=== PATIENT | male | born 1995 | race Caucasian/White ===

== ENCOUNTER → 2018-07-07 | Outpatient (CLI) | payer OTHER ==
--- NOTE | 2018-07-09 20:43 | SLE ---
[facility] [place] [address] POLYSOMNOGRAPHY STUDY Name: ANTHONY TUTTLE Cami Room #: REG [facility]#: [id number] Admission: 07/07/18 ������������������ Attend Phys: Richard Harrington MD Discharge: ������������������ Date of : [birth year] Report #: [id number] THIS REPORT FOR: //name// CC: Richard Pradhan MD DATE OF SERVICE: 07/07/2018 ATTENDING PHYSICIAN: Dr. Eric Pradhan. The patient is a 23-year-old who weighs 355 pounds with a BMI of 50.9. The patient's [place] score was 15. The patient underwent split night study performed at [facility]. During the night study, the patient spent 468 minutes in bed and slept for 391 minutes with a sleep efficiency of 83%. Sleep latency was 1.9 minutes with a REM latency of 99.9 minutes. Overall sleep architecture showed increased stage 1 sleep, normal stage 2 sleep, absent N3 sleep and normal REM sleep. During the initial diagnostic portion of the study, the patient spent 215 minutes in bed and slept for 154 minutes. During that time, there were 54 obstructive apneas, 5 mixed apneas, 22 central apneas and 170 hypopneas. The patient's apnea-hypopnea index was 97.8 per hour with a REM index of 78 per hour and a supine index of 94 per hour. EKG monitoring revealed an average heart rate of 86 beats per minute. No sustained arrhythmias observed. PLMS were seen at an index of 48 per hour and 8 per hour caused EEG arousals. Nocturnal oximetry study revealed an average oxygen saturation of 92% with a lowest of 66%. 33 minutes were spent at an oxygen saturation of less than 89% and another 6 minutes with saturations of less than 79%. The patient met the criteria for CPAP initiation. The patient already has a CPAP that he uses at home. It was started at 10 cm water and titrated up to 18 cm of water. At the final pressure, the patient slept for 115 minutes including 46 minutes of REM sleep. The patient had supine sleep as well. The patient's AHI was reduced to 0 per hour and oxygen saturation remained above 92%. The patient was started off with nasal pillows initially, but did well with a full face mask. PLMS did significantly improve while on CPAP at an index of 4.8 per hour. [facility] [address] [place] [address] POLYSOMNOGRAPHY STUDY Name: ANTHONY TUTTLE [id number] Admission: 07/07/18 ������������������ Attend Phys: Richard Harrington MD Discharge: ������������������ Date of : [birth year] Report #: [id number] IMPRESSION: 1. Severe sleep apnea-hypopnea syndrome at an apnea-hypopnea index of 97.8 per hour. 2. Nocturnal hypoxia secondary to obstructive sleep apnea, but resolved with CPAP. 3. Moderate to severe periodic limb movements of sleep, which subsequently resolved while the patient slept on the CPAP and as such does not need to be treated. RECOMMENDATIONS: 1. CPAP at 18 cm of water completely eliminated the patient's sleep apnea and should be used on a nightly basis. 2. Follow up in 4-6 weeks to assess compliance with CPAP and to document clinical improvement. 3. Weight loss is strongly advised. 4. Avoid [employer] depressants. 5. Cautioned regarding driving until symptoms of sleep apnea have resolved with the use of CPAP. ��������������������������������������������� <ELECTRONICALLY SIGNED> ���������������������������������������� By: Richard Harrington MD ��������������������������������������������� 07/09/18 [id number] Richard Harrington MD /nt
== END ==
LOC: SLEEPLAB 09:38
DX: G47.33 Obstructive sleep apnea (adult) (pediatric) (principal); R09.02 Hypoxemia; G47.61 Periodic limb movement disorder; E66.01 Morbid (severe) obesity due to excess calories; I10 Essential (primary) hypertension; J45.909 Unspecified asthma, uncomplicated; Z68.43 Body mass index [BMI] 50.0-59.9, adult

== ENCOUNTER 2019-11-09 12:45 | Emergency (ER) | payer OTHER ==
[~2019-11-09] VITALS: Ht 177.8 cm; Wt 167.8 kg
[2019-11-09] MEDS ORDERED: KEPPRA XR500 MG PO (13:49)
[2019-11-09] MEDS ORDERED: PROZAC20 M1 PO (13:49)
[2019-11-09] MEDS ORDERED: CLONIDINE HCL0.2 M2 PO (13:50)
[2019-11-09 14:08] LABS: ABSOLUTE NEUTROPHILS 7.9 thou/uL (1.4-8.2); EOSINOPHILS 1.3 % (0.0-3.0); HEMATOCRIT 41.6 % (42.0-52.0); HEMOGLOBIN 14.3 gm/dL (14.0-18.0); MCH 27.7 pg (26.0-34.0); MCHC 34.3 g/dL (28.0-37.0); MCV 80.7 fL (80.0-100.0); MONOCYTES 5.2 % (1.0-8.0); PLATELET COUNT 359 thou/uL (150-400); POLYS 67.5 % (36.0-66.0); RBC 5.15 mil/uL (4.50-6.00); RDW 13.9 % (10.5-14.5); WBC 11.7 thou/uL (4.0-11.0)
[2019-11-09 14:19] LABS: ANION GAP 12 mmol/L (7-16); BUN 10 mg/dL (7-18); CALCIUM 9.4 mg/dL (8.5-10.1); CHLORIDE 99 mmol/L (98-107); CO2 26 mmol/L (21-32); CREATININE 0.7 mg/dL (0.7-1.3); GLUCOSE 91 mg/dL (74-106); SODIUM 137 mmol/L (136-145)
[2019-11-09 14:25] LABS: SALICYLATE < 2.8 mg/dL (2.8-20.0); SGOT 39 U/L (15-37); SGPT 96 U/L (30-65); TOTAL BILIRUBIN 0.4 mg/dL (0.2-1.0); TOTAL PROTEIN 8.1 g/dL (6.4-8.2)
[2019-11-09 14:37] LABS: URINE BILIRUBIN NEGATIVE (Negative); URINE BLOOD TRACE (Negative); URINE CLARITY CLEAR; URINE COLOR YELLOW; URINE GLUCOSE-RANDOM* NEGATIVE (Negative); URINE KETONES NEGATIVE (Negative); URINE LEUKOCYTES-REFLEX TRACE (Negative); URINE NITRITE-REFLEX NEGATIVE (Negative); URINE PROTEIN (DIPSTICK) NEGATIVE (Negative); URINE SPECIFIC GRAVITY 1.015 (1.005-1.035); URINE UROBILINOGEN 0.2 E.U./dl (0.2-1.0)
[2019-11-09 14:48] LABS: AMP/METHAMP Negative (Negative); BARBITURATES Negative (Negative); BENZODIAZEPINES Negative (Negative); COCAINE Negative (Negative); METHADONE Negative (Negative); OPIATES Negative (Negative); PCP Negative (Negative)
[2019-11-09 21:27] VITALS: BP 186/121
== END 2019-11-09 21:29 | disposition short-term general hospital (02) ==
LOC: ER 12:45
PROVIDERS: Physician Assistant
DX: R45.851 Suicidal ideations (principal); F41.9 Anxiety disorder, unspecified; F32.9 Major depressive disorder, single episode, unspecified; I10 Essential (primary) hypertension; Z79.899 Other long term (current) drug therapy